=== PATIENT | female | born 1960 | race Caucasian/White ===

== ENCOUNTER 2017-02-28 09:07 | Emergency (ER) | payer MEDICAID ==
[~2017-02-28] VITALS: Ht 154.9 cm; Wt 69.5 kg
[2017-02-28 09:14] VITALS: BP 124/86
[2017-02-28] MEDS ORDERED: ONDANSETRON HCL 4 MG/2 ML VIAL IM ONE (10:30)
== END 2017-02-28 11:11 | disposition home or self-care (01) ==
LOC: EMS 09:09
DX: L02.213 Cutaneous abscess of chest wall (principal); Z88.6 Allergy status to analgesic agent; Z88.5 Allergy status to narcotic agent
CPT/HCPCS: 96372; 99283; J2405

== ENCOUNTER 2021-01-04 13:34 | Emergency (ER) | payer MEDICAID ==
[~2021-01-04] VITALS: Ht 149.9 cm; Wt 77.3 kg
[2021-01-04 13:38] VITALS: BP 136/96
[2021-01-04] MEDS ORDERED: TraMADol HCL 50 MG TABLET PO ONE (14:30)
[2021-01-04] MEDS ORDERED: ACETAMINOPHEN 500 MG TABLET PO ONE (14:45)
== END 2021-01-04 16:07 | disposition home or self-care (01) ==
LOC: EMS 13:40
DX: S93.401A Sprain of unspecified ligament of right ankle, initial encounter (principal); Z88.6 Allergy status to analgesic agent; Z88.5 Allergy status to narcotic agent; W01.0XXA Fall on same level from slipping, tripping and stumbling without subsequent striking against object, initial encounter; Y93.89 Activity, other specified; Y92.89 Other specified places as the place of occurrence of the external cause; Y99.8 Other external cause status
CPT/HCPCS: 99284; 73610-TC; 73630-TC; Z7502; Z7610

== ENCOUNTER 2023-05-12 14:34 | Emergency (ER) | payer MEDICAID ==
[~2023-05-12] VITALS: Ht 149.9 cm; Wt 77.3 kg
[2023-05-12 15:07] VITALS: TEMP 98
[2023-05-12] MEDS ORDERED: SODIUM CHLORIDE 0.9% 1,000 ML IV ONE (15:30)
[2023-05-12] MEDS ORDERED: KETOROLAC TROMETHAMINE 30 MG/ML VIAL IVP ONE (15:30)
[2023-05-12] MEDS ORDERED: DiphenhydrAMINE HCL 50 MG/ML VIAL IVP ONE (15:30)
[2023-05-12] MEDS ORDERED: METOCLOPRAMIDE HCL 5 MG/ML 2 ML VIAL IVP ONE (15:30)
[2023-05-12] MEDS ORDERED: DOCU-385 PO (17:52)
[2023-05-12 18:12] VITALS: BP 143/88; PULSE 4; RESP 18
== END 2023-05-12 18:14 | disposition home or self-care (01) ==
LOC: EMS 14:50
DX: G43.909 Migraine, unspecified, not intractable, without status migrainosus (principal); K59.00 Constipation, unspecified; Z88.4 Allergy status to anesthetic agent; Z88.5 Allergy status to narcotic agent
CPT/HCPCS: 99284; 96374; 96375; 96361; J1200; J1885; J2765; J7030